=== PATIENT | female | born 1960 | race Caucasian/White ===

== ENCOUNTER 2022-12-17 03:55 | Emergency (ER) | payer OTHER, SELFPAY ==
[2022-12-17] VITALS (7 sets, daily range): BP systolic 94–150; BP diastolic 41–66; PULSE 45–55; RESP 16–18; TEMP 36.6; O2SAT 95–100; BMI 24.0
--- NOTE | 2022-12-17 04:02 | W.ED.BACK ---
HPI - Back Pain/Injury General: Chief Complaint: Back Pain/Injury Stated Complaint: low back pian Time Seen by Provider: 12/17/22 04:02 History of Present Illness: Ms. Bee is a 62-year-old lady presenting to the emergency department for evaluation of atraumatic low back pain. She reports pain in the midline, flank, radiating to the injury. Worse with palpation and movement. She does have a history of back pain but reports that this is the worst that it has been. Denies fevers, cervical pain, loss of bowel or bladder continence, saddle anesthesia, or other red flag symptoms. No other specific changes in health, exacerbating, or alleviating factors identified. Severity: moderate Quality: sharp and aching Location: right lower back and left lower back Radiation: groin Associated symptoms: Reports no associated symptoms Review of Systems General: Reports: 10 or more systems reviewed and unremarkable except in HPI and below Physical Exam Const: COMMON NORMALS: alert GENERAL APPEARANCE: cooperative and well developed HENMT: COMMON NORMALS: normocephalic and atraumatic HEAD & SCALP: normocephalic and atraumatic Eye: COMMON NORMALS: conjunctivae normal CONJUNCTIVA: Yes conjunctivae normal SCLERA: sclerae normal Neck/C-Spine: COMMON NORMALS: supple GENERAL: Yes trachea midline Resp: COMMON NORMALS: clear to auscultation bilaterally EFFORT & INSPECTION: Yes able to speak in complete sentences AUSCULTATION: clear to auscultation bilaterally Cardio: COMMON NORMALS: regular rate and regular rhythm RATE: regular rate RHYTHM: regular rhythm GI: COMMON NORMALS: Soft to palpation PALPATION: Yes Soft to palpation and No Tenderness to palpation present (GI) : COMMON NORMALS: Yes no CVA tenderness BLADDER/KIDNEY EXAM: Yes no CVA tenderness Back/Pelvis: COMMON NORMALS: no CVA tenderness LUMBAR SPINE/LOWER BACK: Yes lumbar spinal tenderness and Yes paraspinal muscle tenderness Extremity: GENERAL: Yes normal exam except as noted and No edema Neuro: COMMON NORMALS: moves all extremities SENSORIUM/ORIENTATION: Yes alert and No Orientation impaired Psych: COMMON NORMALS: mental status grossly normal and Normal thought process present THOUGHT PROCESS: Normal thought process present Course Vital Signs: Vital signs: Vital Signs Temperature 97.9 F 12/17/22 04:00 Pulse Rate 45 L 12/17/22 06:18 Respiratory Rate 16 12/17/22 06:18 Blood Pressure 94/47 12/17/22 06:18 Pulse Oximetry 97 12/17/22 06:18 Oxygen Delivery Me thod Room Air 12/17/22 06:01 MDM - Back Pain/Injury Medical Decision Making 62-year-old lady presenting to the emergency department for atraumatic worsening of back pain. Exam as above. Nontoxic and no red flag symptoms. Not significantly reproducible with palpation on exam. No significant hematologic or metabolic abnormalities. No UTI. No hematuria. No clear etiology of symptoms identified on CT scan. Incidental findings were discussed with the patient. Improved with analgesia, antiemetic, antispasmodic. Possible relation to constipation. The results of ED evaluation were discussed with the patient including prescriptions and/or symptomatic cares (if applicable) including appropriate and responsible use, followup plan, and return precautions. The patient verbalized understanding and felt safe for discharge. Medical Records I reviewed the patient's medical records. Labs I reviewed the patient's lab results. 12/17/22 04:12 12/17/22 04:12 Radiology Impressions Abdomen/Pelvis CT 12/17/22 05:03 IMPRESSION: 1. No obstructive urolithiasis or definite acute finding. 2. Hepatic steatosis, severe colonic diverticulosis, and other chronic findings. 3. Small right renal probable cyst. Advise six-month outpatient ultrasound to confirm its anticipated stability. COMMENTS: Consistent with the [employer]'s Incidental Findings Committee white paper (J Am Brie Radiol 2018): Any incidental renal lesion less than 1 cm or classified as too small to characterize, or any incidental cystic renal lesion characterized as simple-appearing, is likely benign. No follow-up imaging is recommended for these lesions per consensus recommendations based on imaging criteria. Laboratory Results WBC 5.4 10^3/uL (4.0-10.0) 12/17/22 04:12 RBC 4.48 10^6/uL (4.1-5.3) 12/17/22 04:12 Hgb 13.9 g/dL (11.5-15.3) 12/17/22 04:12 Hct 42.9 % (37.0-47.0) 12/17/22 04:12 MCV 95.8 fl (81-99) 12/17/22 04:12 MCH 31.0 pg (28.0-34.0) 12/17/22 04:12 MCHC 32.4 g/dL (30.0-36.0) 12/17/22 04:12 RDW 12.2 % (12.1-15.1) 12/17/22 04:12 Plt Count 280 10^3/cmm (130-400) 12/17/22 04:12 MPV 10.1 fL (7.4-10.4) 12/17/22 04:12 Neut % (Auto) 57.9 % 12/17/22 04:12 Lymph % (Auto) 26.7 % 12/17/22 04:12 Bledsoe % (Auto) 11.2 % 12/17/22 04:12 Eos % (Auto) 2.0 % 12/17/22 04:12 Baso % (Auto) 1.1 % 12/17/22 04:12 Neut # (Auto) 3.15 10^3/uL (1.8-7.7) 12/17/22 04:12 Lymph # (Auto) 1.5 10^3/uL (0.8-4.8) 12/17/22 04:12 Bledsoe # (Auto) 0.6 10^3/uL (0.2-0.9) 12/17/22 04:12 Eos # (Auto) 0.1 10^3/uL (0.0-0.8) 12/17/22 04:12 Baso # (Auto) 0.1 10^3/uL (0.0-0.1) 12/17/22 04:12 Nucleated RBC % (auto) 0 % 12/17/22 04:12 Nucleated RBCs # 0.0 /100WBC 12/17/22 04:12 Sodium 138 mmol/L (136-145) 12/17/22 04:12 Potassium 4.1 mmol/L (3.5-5.1) 12/17/22 04:12 Chloride 102 mmol/L (98-107) 12/17/22 04:12 Carbon Dioxide 24 mmol/L (22-29) 12/17/22 04:12 Anion Gap 16.1 (5-19) 12/17/22 04:12 BUN 14 mg/dL (8-23) 12/17/22 04:12 Creatinine 0.7 mg/dL (0.5-0.9) 12/17/22 04:12 GFR Calculation 84.5 mL/min (90-130) L 12/17/22 04:12 Glucose 150 mg/dL (65-115) H 12/17/22 04:12 Calculated Osmolality 289 mOsm/kg (285-295) 12/17/22 04:12 Calcium 9.5 mg/dL (8.5-10.5) 12/17/22 04:12 Total Bilirubin 0.3 mg/dL (0.15-1.2) 12/17/22 04:12 AST 15 U/L (0-32) 12/17/22 04:12 ALT 19 U/L (0-33) 12/17/22 04:12 Alkaline Phosphatase 62 U/L (35-105) 12/17/22 04:12 Total Protein 7.0 g/dL (6.6-8.7) 12/17/22 04:12 Albumin 4.2 g/dL (3.5-5.2) 12/17/22 04:12 Globulin 2.8 g/dL (1.3-4.6) 12/17/22 04:12 Lipase 29 U/L (13-60) 12/17/22 04:12 Urine Color Yellow (Yellow) 12/17/22 05:01 Urine Appearance Clear (CLEAR) 12/17/22 05:01 Urine pH 5 (5-7) 12/17/22 05:01 Ur Specific [place] 1.020 (1.005-1.030) 12/17/22 05:01 Urine Protein Neg (Negative) 12/17/22 05:01 Urine Glucose (UA) Norm (Normal) 12/17/22 05:01 Urine Ketones Negative (Negative) 12/17/22 05:01 Urine Blood Neg (Negative) 12/17/22 05:01 Urine Nitrate Negative (Negative) 12/17/22 05:01 Urine Bilirubin Neg (Negative) 12/17/22 05:01 Urine Urobilinogen Neg mg/dL (Negative) 12/17/22 05:01 Ur Leukocyte Esterase Negative (Negative) 12/17/22 05:01 Discharge Plan Discharge Patient Disposition: Home Clinical Impression: Acute flank pain, Constipation Condition: Stable Prescriptions: No Action vitamin C65-fwgwz acid 0.5-1 mg Tablet 1 tab PO DAILY Probiotic 3 billion cell Capsule 3,000 mmu cells PO DAILY Rx Instructions: administer with a meal hydrocodone-acetaminophen 5-325 mg tablet 1 tab PO .q 4-6 PRN (Reason: pain) Qty: 20 0RF Discharge Orders: Discharge ED (Routine); Ordered 12/17/22 Ordered By: Efrain Moody Discharge Diet: Advance as tolerated and Clear Liquid Discharge Activity: Increase activity as tolerated Patient Instructions: Constipation (ED), Acute Low Back Pain (ED), Flank Pain (ED), Opioid Safety Activity Restrictions/Additional Instructions: Thank you for visiting the emergency department. You were seen and evaluated for flank pain. The exact cause of your symptoms is unclear however does not appear to need hospitalization at this time. One potential cause is constipation/increased stool in the colon. I will prescribe MiraLAX though you can use other zwke-kcr-[id number] medications if you choose. Please ensure that you are staying hydrated. Adjust for multiple applesauce consistency bowel movements per day. I recommend clear liquid diet and slowly advancing as tolerated. Please ensure that you are resting and staying hydrated. You may use gdci-mfu-smwfruy medications such as acetaminophen and ibuprofen for pain however please do not exceed the daily recommended dosage as listed on the packaging and please keep in mind that many namebrand medications contain the same active ingredients. Please avoid these medications if previously instructed to do so by another physician due to other underlying medical condition. Return for uncontrolled symptoms, inability to tolerate oral intake, or anything else that you are concerned about and feel needs emergency department evaluation. The radiologist notes incidental finding of hepatic steatosis, colonic diverticulosis, small right renal probable cyst however given size they recommend outpatient ultrasound in 6 months to confirm stability. This can be arranged by your primary care provider. Coding Level of Care Code ED Information Officer for Janay Hughes
[2022-12-17 04:31] LABS: Basophils # 0.1 10^3/uL (0.0-0.1); Basophils % 1.1 %; Eosinophils # 0.1 10^3/uL (0.0-0.8); Hematocrit 42.9 % (37.0-47.0); Hemoglobin 13.9 g/dL (11.5-15.3); Lymphocytes # 1.5 10^3/uL (0.8-4.8); Lymphocytes % 26.7 %; Mean Corpuscular HGB Conc 32.4 g/dL (30.0-36.0); Mean Corpuscular Volume 95.8 fl (81-99); Mean Platelet Volume 10.1 fL (7.4-10.4); Monocytes # 0.6 10^3/uL (0.2-0.9); Monocytes % 11.2 %; Neutrophils # 3.15 10^3/uL (1.8-7.7); Neutrophils % 57.9 %; Nucleated Red Blood Cells % 0 %; Platelet Count 280 10^3/cmm (130-400); Red Blood Count 4.48 10^6/uL (4.1-5.3); Red Cell Distribution Width 12.2 % (12.1-15.1); White Blood Count 5.4 10^3/uL (4.0-10.0)
[2022-12-17 04:44] LABS: Alanine Aminotransferase 19 U/L (0-33); Albumin Level 4.2 g/dL (3.5-5.2); Alkaline Phosphatase 62 U/L (35-105); Anion Gap 16.1 (5-19); Aspartate Amino Transferase 15 U/L (0-32); Blood Urea Nitrogen 14 mg/dL (8-23); Calcium 9.5 mg/dL (8.5-10.5); Carbon Dioxide 24 mmol/L (22-29); Chloride 102 mmol/L (98-107); Globulin 2.8 g/dL (1.3-4.6); Glomerular Filtration Rate 84.5 mL/min (90-130); Glucose 150 mg/dL (65-115); Lipase 29 U/L (13-60); Osmolality Calculated 289 mOsm/kg (285-295); Potassium 4.1 mmol/L (3.5-5.1); Sodium 138 mmol/L (136-145); Total Bilirubin 0.3 mg/dL (0.15-1.2)
[2022-12-17] MEDS: ketorolac 30 mg/mL INJ 15 MG IVP (04:46)
[2022-12-17] MEDS: ondansetron 2 mg/ML SDV 2 mL 4 MG IVP (04:48)
[2022-12-17] MEDS: morphine 4 mg/mL SDV 1 mL IVP (04:50)
--- NOTE | 2022-12-17 05:03 | CTR_ITS ---
PROCEDURE INFORMATION: Exam: CT Abdomen And Pelvis Without Contrast Exam date and time: 12/17/2022 5:09 AM Age: 62 years old Clinical indication: Abdominal pain; Flank; Right; Additional info: R flank pain TECHNIQUE: Imaging protocol: Computed tomography of the abdomen and pelvis without contrast. Radiation optimization: All CT scans at this facility use at least one of these dose optimization techniques: automated exposure control; mA and/or kV adjustment per patient size (includes targeted exams where dose is matched to clinical indication); or iterative reconstruction. REPORTING DATA: Count of CT and Cardiac NM exams in prior 12 months: This patient has received 0 known CTs and 0 known cardiac nuclear medicine studies in the 12 months prior to the current study. COMPARISON: No relevant prior studies available. RADIATION DOSE METRICS: Total DLP (mGy-cm): 501.82 FINDINGS: Lungs: The visualized lung bases are clear. Liver: Liver is hypodense. Gallbladder and bile ducts: No calcified gallstones or biliary dilation identified. Pancreas: Unremarkable with no suspicious mass. No ductal dilation. Spleen: The spleen is not enlarged. No suspicious mass is noted. Adrenal glands: Normal. No mass. Kidneys and ureters: Right posterior renal probable cyst measures 1.7 cm. Stomach and bowel: The colon is rather fecal filled. Severe sigmoid diverticulosis. No small bowel dilation. Appendix: Normal appendix. Intraperitoneal space: Unremarkable. No free air. No suspicious fluid collection. Vasculature: Advanced diffuse vascular calcification noted. Small pelvic phleboliths. No AAA. Lymph nodes: No enlarged lymph nodes. Urinary bladder: Unremarkable as visualized. Reproductive: Unremarkable as visualized. Bones/joints: No acute fracture. Soft tissues: No acute or suspicious finding noted. CT/CT kidney stone [id number] IMPRESSION: 1. No obstructive urolithiasis or definite acute finding. 2. Hepatic steatosis, severe colonic diverticulosis, and other chronic findings. 3. Small right renal probable cyst. Advise six-month outpatient ultrasound to confirm its anticipated stability. COMMENTS: Consistent with the [employer]'s Incidental Findings Committee white paper (J Am Brie Radiol 2018): Any incidental renal lesion less than 1 cm or classified as too small to characterize, or any incidental cystic renal lesion characterized as simple-appearing, is likely benign. No follow-up imaging is recommended for these lesions per consensus recommendations based on imaging criteria.
[2022-12-17 05:11] LABS: Add Urine Microscopic? NO; Charge for UA Resulting for Rev
[2022-12-17 05:13] LABS: Bilirubin Urine Neg (Negative); Blood Urine Neg (Negative); Glucose Urine UA Norm (Normal); Ketones Urine Negative (Negative); Leukocyte Esterase Urine Negative (Negative); Nitrate Urine Negative (Negative); Protein Urine Neg (Negative); Urine Appearance Clear (CLEAR); Urine Color Yellow (Yellow); Urobilinogen Urine Neg (Negative); pH Urine 5 (5-7)
[2022-12-17] MEDS: cyclobenzaprine 10 mg Tablet 5 MG PO (06:03)
[2022-12-17] MEDS: acetaminophen 500 mg Tablet 1000 MG PO (06:03)
[2022-12-17] MEDS: dicyclomine 10 mg Capsule PO (06:04)
--- NOTE | 2022-12-17 06:11 | PC.NURSE ---
MD notified of BP, no new orders received.
== END 2022-12-17 06:27 | disposition home or self-care (01) ==
PROVIDERS: Emergency Provider Emergency Medicine
DX: M54.50 Low back pain, unspecified (principal); K59.00 Constipation, unspecified
CPT/HCPCS: 74176; 80053; 81003; 83690; 85025; 96374; 96375; 99284; J1885; J2270; J2405

== ENCOUNTER 2022-12-29 10:37 | Emergency (ER) | payer OTHER, SELFPAY ==
[2022-12-29 10:38] VITALS: BMI 26.9
[2022-12-29 10:41] VITALS: BP 179/102; PULSE 77; RESP 18; TEMP 37; O2SAT 95
--- NOTE | 2022-12-29 10:44 | XR_ITS ---
WS: [id number] Exam: XR wrist RT min 3V* [id number] Date/Time of Exam: 12/29/2022 10:46 AM Reason For Exam: fall/injury There is an impacted comminuted fracture of the distal radius. This is an intra-articular fracture. T he ulna is intact. There is mild dorsal angulation of the articulating surface of the distal radius. Soft tissue swelling about the wrist. No other fractures. XR/XR wrist RT min 3V* [id number] IMPRESSION: 1. Comminuted fracture of the distal radius with shortening and mild dorsal ang ulation. This is a intra-articular fracture
--- NOTE | 2022-12-29 10:45 | W.ED.FALL ---
HPI - Fall General: Chief Complaint: Extremity Injury, Upper Stated Complaint: FALL Time Seen by Provider: 12/29/22 10:39 Source: patient Mode of arrival: wheelchair Limitations: no limitations History of Present Illness: Patient is a nice 62-year-old female presents to ED today for evaluation following a fall. 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 She states she was wearing paper booties over her shoes which caused her to slip on the tile and fall. She believes she fell onto her right outstretched hand. Her only physical complaint upon presentation is right wrist pain. She denies striking her head or LOC. She has no neck or back pain. MD complaint: fall Onset (ago): minute(s) Fall from: standing Fall witnessed: yes, by bystander Place fall occurred: work Loss of consciousness: None Prolonged down time: no Symptoms prior to fall: none Context: tripped/slipped Location of injury - extremities: Right: forearm Associated symptoms-after fall: Reports no associated symptoms; Denies abdominal pain, chest pain, headache(s), hematuria, lightheadedness or neck pain Review of Systems Eyes: Denies: change in vision, blurry vision, floaters or seeing flashes ENMT: Denies: ear or mastoid pain, ear discharge, nasal discharge, epistaxis or sinus pain Card: Denies: chest pain, palpitations, lightheadedness, syncope or pre-syncope Resp: Denies: dyspnea or pain on inspiration GI: Denies: abdominal pain : Denies: flank pain or hematuria Musc: Reports: joint pain (R wrist) and limited range of motion (R wrist); Denies: neck pain, back pain, extremity pain, extremity swelling, joint redness or joint warmth Neuro: Denies: headache(s), numbness in extremities, weakness in extremities, sensory changes or dizziness Physical Exam Const: COMMON NORMALS: no acute distress, average body habitus, patient oriented x3, no limitations, healthy appearing, alert and well nourished GENERAL APPEARANCE: cooperative ORIENTATION/CONSCIOUSNESS: Yes awake, Yes oriented to person, Yes oriented to place and Yes oriented to time HENMT: COMMON NORMALS: normocephalic, atraumatic and TM's normal bilaterally HEAD & SCALP: normal to inspection, normocephalic and atraumatic; no Pedro's sign, no hematoma and no raccoon eyes FACE & SINUS: normal facial exam TYMPANIC MEMBRANE: TM's normal bilaterally MOUTH: other (no intraoral injuries noted) Eye: COMMON NORMALS: Equal, round and reactive pupils present and EOMs intact bilaterally GENERAL EYE: appearance normal, both eyes and all related structures and normal light reflex PUPIL: Yes Equal, round and reactive pupils present DIRECT OPHTHALMOSCOPY: Yes normal light reflex Neck/C-Spine: COMMON NORMALS: full ROM GENERAL: Yes normal visual inspection CERVICAL SPINE: Yes cervical ROM normal, No pain with cervical ROM, No Cervical spine tenderness, No step off deformity and No Paracervical muscle tenderness Chest: COMMONS NORMALS: normal inspection of the chest and normal palpation of entire chest wall Resp: COMMON NORMALS: normal respiratory effort and clear to auscultation bilaterally AUSCULTATION: clear to auscultation bilaterally Cardio: COMMON NORMALS: regular rate and regular rhythm RATE: regular rate RHYTHM: regular rhythm GI: COMMON NORMALS: Normal to inspection, nondistended, normoactive bowel sounds present, Soft to palpation, non-tender, No hepatosplenomegaly present and no masses INSPECTION: Yes normal to inspection and No abdominal wall ecchymosis AUSCULTATION: Yes normoactive bowel sounds PALPATION: Yes Soft to palpation and Yes No hepatosplenomegaly present Back/Pelvis: COMMON NORMALS: thoracic and lumbar spine normal to inspection, no thoracic nor lumbar tenderness and thoraco-lumbar ROM normal Extremity: COMMON NORMALS: capillary refill normal GENERAL: Yes normal exam except as noted RIGHT UPPER EXTREMITY: Yes wrist (TTP R wrist mainly to radial side; small amount of edema noted) Right wrist: Yes ROM (limited secondary to pain) and Yes neurovascular exam (normal) Neuro: ANITHA COMA SCALE: document GCS findings [place] coma scale eye opening: Spontaneous [place] coma scale verbal response: Orientated Anitha coma scale motor response: Obey commands Anitha coma scale total score: 15 COMMON NORMALS: patient oriented x3, CN's II-XII intact bilaterally, moves all extremities, no focal motor deficits, no sensory deficits noted and gait normal SENSORIUM/ORIENTATION: Yes alert, Yes oriented to person, Yes oriented to place and Yes oriented to time SPEECH: speech normal GAIT: Yes Normal gait present Skin: COMMON NORMALS: no rashes or lesions noted GENERAL SKIN EXAM: no rashes or lesions noted TRAUMA: no lacerations or abrasions Course Consultations: Consultation #1: Dr. Montelongo-recommends CT scan, sugar tong splint, and will see this week in office Vital Signs: Vital signs: Vital Signs Temperature 98.6 F 12/29/22 10:41 Pulse Rate 72 12/29/22 11:07 Respiratory Rate 14 12/29/22 11:08 Blood Pressure 171/83 12/29/22 11:07 Pulse Oximetry 94 12/29/22 11:08 Oxygen Delivery Me thod Room Air 12/29/22 11:07 MDM - Fall Medical Decision Making Patient has a comminuted intra-articular distal radial fracture. She has no other physical complaints at this time. I spoke to Dr. Montelongo who recommends CT imaging for surgical planning and sugar-tong splint and will see this week for follow-up. Worker's Comp. paperwork completed. 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 Lab Data Radiology Impressions Wrist X-Ray 12/29/22 10:44 IMPRESSION: 1. Comminuted fracture of the distal radius with shortening and mild dorsal angulation. This is a intra-articular fracture Discharge Plan Discharge Patient Disposition: Home Clinical Impression: Closed fracture of right distal radius Qualifiers: Encounter type: initial encounter Fracture morphology: other intra-articular Qualified Code(s): S52.571A - Other intraarticular fracture of lower end of right radius, initial encounter for closed fracture Condition: Stable Prescriptions: New hydrocodone-acetaminophen 5-325 mg tablet 1 tab PO .q 4-6 PRN (Reason: pain) Qty: 20 0RF Discontinued oxycodone 5 mg tablet 5 mg PO Q4H PRN (Reason: pain) Qty: 10 0RF No Action vitamin B17-kkqfj acid 0.5-1 mg Tablet 1 tab PO DAILY Probiotic 3 billion cell Capsule 3,000 mmu cells PO DAILY Rx Instructions: administer with a meal Discharge Orders: Discharge ED (Routine); Ordered 12/29/22 Ordered By: Dolly Greenfield Patient Instructions: Wrist Fracture in Adults (ED), ORIF of a Wrist Fracture (DC), Opioid Safety, Pain Management Activity Restrictions/Additional Instructions: As we discussed case management should be contacting you soon to set you up with your follow-up appointment with Dr. Montelongo's office. You will also follow up with a provider for Worker's Comp. MARLY warehouse receiving clerk will work on this. Coding Level of Care Code ED Employee Benefits Specialist for Janay Hughes
[2022-12-29 11:07] VITALS: BP 171/83; PULSE 72; RESP 14; O2SAT 94
[2022-12-29 11:08] VITALS: RESP 14; O2SAT 94
[2022-12-29] MEDS: morphine 4 mg/mL SDV 1 mL IM (11:08)
--- NOTE | 2022-12-29 11:13 | CTR_ITS ---
PROCEDURE INFORMATION: Exam: CT Right Upper Extremity Without Contrast, Wrist Exam date and time: 12/29/2022 11:20 AM Age: 62 years old Clinical indication: Injury or trauma; Fall; Work related; Blunt trauma (contusions or hematomas); Wrist; Right; Additional info: Comminuted intra-articular FX TECHNIQUE: Imaging protocol: Computed tomography of the right upper extremity without contrast. Exam focused on the wrist. Radiation optimization: All CT scans at this facility use at least one of these dose optimization techniques: automated exposure control; mA and/or kV adjustment per patient size (includes targeted exams where dose is matched to clinical indication); or iterative reconstruction. REPORTING DATA: Count of CT and Cardiac NM exams in prior 12 months: This patient has received [address] and 0 known cardiac nuclear medicine studies in the 12 months prior to the current study. COMPARISON: CR XR wrist RT min 3V* [id number] 12/29/2022 10:49 AM RADIATION DOSE METRICS: Total DLP (mGy-cm): 73.37 FINDINGS: Bones/joints: Mildly displaced, foreshortened and angulated comminuted intra-articular distal radius fracture. Corticated ossicle dorsal to the triquetral bone in keeping with old fracture. Mild nonaggressive cystic change at the ulnar lunate. Moderate 1st CMC joint osteoarthritic changes. Soft tissues: Regional soft tissue swelling. CT/CT wrist RT wo con* [id number] IMPRESSION: 1. Acute mildly displaced, foreshortened and angulated comminuted intra-articular distal radius fracture. 2. Old triquetral fracture. 3. 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
[2022-12-29 11:45] VITALS: BP 161/97; PULSE 72; RESP 14; O2SAT 96
--- NOTE | 2022-12-29 14:51 | DCPLANNER ---
Addendum entered by Odalis Khoury 12/30/22 14:25: Patient had a follow up appointment scheduled for 12.30.22 at ortho - patient did attend appointment. Original Note: digital communications manager had message to schedule a follow up appointment for patient with ortho. digital communications manager sent patients information to the front office staff at ortho. Patients information will be printed and reviewed. Clinic will call patient with appointment information.
== END 2022-12-29 11:41 | disposition home or self-care (01) ==
PROVIDERS: Emergency Provider Physician Assistant
DX: S52.571A Other intraarticular fracture of lower end of right radius, initial encounter for closed fracture (principal); W01.0XXA Fall on same level from slipping, tripping and stumbling without subsequent striking against object, initial encounter; Y92.239 Unspecified place in hospital as the place of occurrence of the external cause; Y99.0 Civilian activity done for income or pay
CPT/HCPCS: 73110; 73200; 96372; 99284; J2270

== ENCOUNTER 2023-01-01 10:06 | Day surgery (SDC) | payer OTHER, SELFPAY ==
[2023-01-01] VITALS (8 sets, daily range): BP systolic 117–167; BP diastolic 70–96; PULSE 62–96; RESP 12–19; TEMP 36.1–36.6; O2SAT 92–96; BMI 26.9
--- NOTE | 2023-01-01 | XR_ITS ---
WS: [id number] Exam: XR wrist RT 2V [id number] Date/Time of Exam: 01/01/2023 12:00 AM Reason For Exam: ORIF right wrist Comparison 12/29/2022. AP and lateral intraoperative C-arm images demonstrate volar plate and screw fixation of a fracture o f the distal radius. The fracture is stabilized in anatomic alignment for healing. XR/XR wrist RT 2V [id number] IMPRESSION: 1. Fracture distal radius with internal fixation in excellent position for heal ing.
[2023-01-01] MEDS: acetaminophen 1,000 MG/100 ML PIGGYBACK 400 MG IV (10:29)
[2023-01-01] MEDS: gabapentin 300 mg Capsule PO (10:29)
[2023-01-01] MEDS: sodium chloride 0.9% 1,000 ML 30 ML IV (10:29)
[2023-01-01] MEDS: CELEcoxib 200 mg Capsule 400 MG PO (10:30)
--- NOTE | 2023-01-01 11:45 | W.PM.OPSUD ---
Surgery/Procedure H&P Update DATE OF PROCEDURE: January 01, 2023 DATE H&P PERFORMED: 12/30/22 H&P UPDATE INFORMATION: I have reviewed H&P completed within last 30 days, I have examined patient prior to procedure, No changes to prior documentation and [place] [facility] [place] indicated PREOP DIAGNOSIS: Right distal radius fracture PLANNED PROCEDURE: Operation Date: 01/01/23 11:50 Proposed Procedures p ORIF Wrist ORIF Distal Radius 54359,S52.501A(Right) - Adelaide Montelongo MD Related Problem List Diagnoses (1) Closed fracture of right distal radius: Qualifiers: Encounter type: initial encounter Fracture morphology: other intra-articular Qualified Code(s): S52.571A - Other intraarticular fracture of lower end of right radius, initial encounter for closed fracture
[2023-01-01] MEDS: ceFAZolin 2,000 MG in sodium chloride 0.9% (plus) 50 ML 100 MG IV (12:15)
--- NOTE | 2023-01-01 12:16 | ANES.PREANE2 ---
Pre-Anesthetic Assessment Height/Weight: Height 1.57 m Weight 66.678 kg Temp Pulse Resp BP Pulse Ox O2 Del Method 97.8 F 96 16 167/96 96 Room Air 01/01/23 10:22 01/01/23 10:22 01/01/23 10:22 01/01/23 10:22 01/01/23 10:22 01/01/23 10:45 Preop Diagnosis: Right distal radius fracture Operation Date: 01/01/23 11:50 Proposed Procedures p ORIF Wrist ORIF Distal Radius 12711,S52.501A(Right) - Adelaide Montelongo MD Familial anesthetic complications: none Was Beta Jose taken within 24 hours: N/A Was Clonidine taken within 24 hours: N/A Last intake: Intake Last Liquid Date 12/31/22 Last Liquid Time 20:00 Last Solid Date 12/31/22 Last Solid Time 20:00 Social No alcohol and No tobacco Exam alert, oriented x 3, clear to auscultation bilaterally and regular rate & rhythm Airway Submandibular: within normal limits Cervical ROM: within normal limits Mallampati: Class II Dentition: full History/ROS No significant history except as noted Anesthetic Plan ASA status: 1 Anesthesia: General and Regional (specify below) (right interscalene blk) Medications/Allergies Home Medications Medication Instructions Recorded Confirmed Last Taken Type hydrocodone 5 mg-acetaminophen 325 1 tab PO .q 4-6 PRN pain #20 tabs 12/29/22 01/01/23 12/31/22 Rx mg tablet lactobacillus combination no.4 3 3,000 mmu cells PO DAILY 12/29/22 01/01/23 12/29/22 History billion cell capsule (Probiotic) vitamin B12 0.5 mg-folic acid 1 mg 1 tab PO DAILY 12/29/22 01/01/23 12/29/22 History tablet Allergies Allergy/AdvReac Type Severity Reaction Status Date / Time No Known Allergies Allergy Verified 01/01/23 10:20 Current Medications Generic Name Dose Route Start Last Admin Trade Name Freq PRN Reason Stop Dose Admin Sodium Chloride 1,000 mls @ 30 mls/hr 01/01/23 10:15 01/01/23 10:29 Sodium Chloride 0.9% IV 01/02/23 10:14 30 mls/hr .Q24H CONCEPCION Administration Data Anesthesia Cardiac Studies: No Data to Display Anesthesia Procedures Nerve Block Nerve Block 1: Main Anesthesia: general anesthesia Time Out Performed: Yes Consent: requested by attending/covering physician, from patient, risks and benefits reviewed and patient agrees to proceed Nerve block location: interscalene (right) Anesthesia monitors applied: pulse oximetry, EKG, BP cuff and oxygen Nerve block position: semi sitting Anesthetic Used: ropivicaine 0.5% Amount of anesthesia used (mL): 30 Ultrasound used to: recognize landmarks and visualize and ID brachial plexus Nerve Stimulator Used?: No Interscalene/Femoral BLK: 2 stimuplex 22 g needle used for position and inplane approach Injection: neg aspiration of heme Patient Tolerated Procedure: well Complications: none
[2023-01-01] MEDS: ceFAZolin 1,000 mg SDV 1000 MG IRRIGATION (12:58)
--- NOTE | 2023-01-01 14:02 | P.OP_ITS ---
Operative Report Date of procedure: January 01, 2023 Pre-op diagnosis: Right distal radius fracture Post-op diagnosis: Right distal radius fracture Post-op findings: [place] volar angulation Procedure done: Open reduction internal fixation right distal radius fracture Implants: The [place] volar distal radius plate 3 hole extra short narrow Pathology: none sent Surgeon: Adelaide Montelongo Intermediate Card Tender: [facility] operating room technicians Anesthesia: General (Per LMA, ASA 1 with supplemental interscalene block) Estimated blood loss (mL): 5 Tourniquet time (min): 0 (Not utilized) IV fluids (mL): 500 Urine output (mL): 0 (Not utilized) Complications: None Findings: [place] volar angulation right distal radius fracture Condition: stable Disposition: PACU (Then return to same-day surgery for discharge to home) Brief History: This is a 62 year old female patient here today for open reduction internal fixation of her right distal radius fracture which demonstrates apex volar angulation. Patient states that she was out side of the surgery department, and she slipped while wearing her shoe covers. Patient states that this caused her to fall. Patient states that she had instant pain in the right wrist following the injury. DOI: 12/29/2022.? She was sent to the emergency department at that time where she was found to have a distal radius fracture.? CT was obtained for further characterization, and this was reviewed with the patient in the office prior to planning surgical intervention. After discussion, the patient wished to proceed with open reduction internal fixation, and I was in agreement with that plan. Scheduled for the above surgery. Risks and complications were discussed and consents were signed in the office. Procedure: The patient was brought to the operating theater. General anesthesia per LMA, ASA 1, was administered without difficulty. The tourniquet was placed on the arm, but it was not elevated for the surgical procedure. The patient was also given Ancef 2 g preoperatively. The arm was then prepped and draped with DuraPrep in usual fashion with the arm draped free. A surgical pause was performed. At the time, the surgical pause, we confirmed the site and side of surgery. We also confirmed the patient's identity, appropriate and timely administration of preoperative antibiotics and preoperative surgical markings. Following prepping and draping, the fracture was evaluated fluoroscopically and the appropriate plate size was chosen. The skin was marked for appropriate incision length and location. An incision was made along the palmaris longus and continued down onto the volar surface of the radius.? Care was taken to avoid injury throughout the surgical procedure to the median nerve as well as to the radial artery.? The flexor carpi radialis was retracted medially.? We were able to essentially elevate the sheath of the flexor carpi radialis, and then I was able to place my finger directly onto the distal radius.? For the most part, the patient did her own dissection at the time of her injury.? Soft tissues were elevated off the distal radius to allow access to the fracture and also to the volar aspect of the distal radial shaft.? Reduction required manipulation, and following manipulation, the fracture was essentially anatomic.? Fluoroscopy was used to determine whether or not the reduction was appropriate.? We were able to reduce the fracture nearly anatomically.? We then evaluated the plate and chose the 3 hole extra short narrow [place] volar distal radius plate.? The plate was attached proximally and distally without difficulty.? A combination of locking and 1 nonlocking screw was utilized to attach the plate.? We had excellent fixation and reduction of the fracture. Fluoroscopy was utilized during the procedure.? Once the plate was fully attached, we had a near anatomic position to the distal radius and the distal radius was out to length.? Being satisfied with position, the area was copiously irrigated. There were no fascial tissues to close, and therefore, we closed the subcutaneous tissues with 4-0 interrupted Monocryl.? Skin was closed in a subcuticular fashion with 4-0 Monocryl.?Sterile dressing was then placed consisting of Dermabond, Steri-Strips, OpSite, fluffed fluffs, sterile soft roll, a volar splint, and an Favian wrap. There were no complications. There were no specimens. The procedure was well tolerated. Plan is the patient will be discharged home. Related Problem List Diagnoses (1) Closed fracture of right distal radius:
--- NOTE | 2023-01-01 17:28 | ANE.PACU2 ---
Inpatient post-anesthesia follow up: Airway intact: Yes Vital signs: Temperature 97.0 F Pulse Rate 62 Respiratory Rate 16 Blood Pressure 119/77 Pulse Oximetry 93 Oxygen Delivery Me thod Room Air Oxygen Flow Rate Fraction of Inspir ed Oxygen Hydration adequate: Yes Nausea and vomiting: No Pain level: 1 Mental status: Baseline
== END 2023-01-01 15:40 | disposition home or self-care (01) ==
PROVIDERS: Visit Provider Specialist
PROC: (CPT 25608; principal; 2023-01-01 11:40)
DX: S52.591A Other fractures of lower end of right radius, initial encounter for closed fracture (principal); W01.0XXA Fall on same level from slipping, tripping and stumbling without subsequent striking against object, initial encounter; Y99.0 Civilian activity done for income or pay
CPT/HCPCS: 25608; 73100; 76000; C1713; J0131; J0690; J1170; J2405; J2704; J2795; J3490; J7030

== ENCOUNTER → 2023-01-18 14:23 | Outpatient (BNVA) | payer OTHER, SELFPAY | PROVIDERS: Visit Provider Specialist | DX: S52.571A Other intraarticular fracture of lower end of right radius, initial encounter for closed fracture; X58.XXXA Exposure to other specified factors, initial encounter | CPT/HCPCS: 73110 ==

== ENCOUNTER 2023-01-20 10:57 | Outpatient (CLI) | payer OTHER, SELFPAY | END 2023-01-20 10:58 | disposition home or self-care (01) | LOC: SPT 10:58 | PROVIDERS: Visit Provider Specialist | DX: Z46.89 Encounter for fitting and adjustment of other specified devices (principal); S52.501D Unspecified fracture of the lower end of right radius, subsequent encounter for closed fracture with routine healing; X58.XXXD Exposure to other specified factors, subsequent encounter | CPT/HCPCS: 97760; L3982 ==

== ENCOUNTER → 2023-02-03 10:12 | Outpatient (BNVA) | payer OTHER, SELFPAY | PROVIDERS: Visit Provider Specialist | DX: S52.571D Other intraarticular fracture of lower end of right radius, subsequent encounter for closed fracture with routine healing; X58.XXXD Exposure to other specified factors, subsequent encounter | CPT/HCPCS: 73110 ==

== ENCOUNTER 2023-02-05 08:29 | Outpatient (RCR) | payer OTHER, SELFPAY | END 2023-02-11 23:59 | disposition home or self-care (01) | LOC: SOT 08:29 | PROVIDERS: Visit Provider Specialist | DX: Z47.89 Encounter for other orthopedic aftercare (principal) | CPT/HCPCS: 97022; 97110; 97140; 97165; 97530 ==

== ENCOUNTER 2023-02-12 06:00 | Outpatient (RCR) | payer OTHER, SELFPAY | END 2023-03-13 23:59 | disposition home or self-care (01) | LOC: SOT 06:00 | PROVIDERS: Visit Provider Specialist | DX: S52.501D Unspecified fracture of the lower end of right radius, subsequent encounter for closed fracture with routine healing (principal); W01.0XXD Fall on same level from slipping, tripping and stumbling without subsequent striking against object, subsequent encounter | CPT/HCPCS: 97022; 97110; 97140 ==

== ENCOUNTER → 2023-03-03 11:07 | Outpatient (BNVA) | payer OTHER, SELFPAY | PROVIDERS: Visit Provider Specialist | DX: S52.571D Other intraarticular fracture of lower end of right radius, subsequent encounter for closed fracture with routine healing; X58.XXXD Exposure to other specified factors, subsequent encounter | CPT/HCPCS: 73110 ==

== ENCOUNTER 2023-03-14 06:00 | Outpatient (RCR) | payer OTHER, SELFPAY | END 2023-04-13 23:59 | disposition home or self-care (01) | LOC: SOT 06:00 | PROVIDERS: Visit Provider Specialist | DX: S52.501D Unspecified fracture of the lower end of right radius, subsequent encounter for closed fracture with routine healing (principal); X58.XXXD Exposure to other specified factors, subsequent encounter | CPT/HCPCS: 97022; 97110; 97140 ==

== ENCOUNTER → 2023-03-24 08:03 | Outpatient (BNVA) | payer OTHER, SELFPAY | PROVIDERS: Visit Provider Nurse Practitioner | DX: S52.571D Other intraarticular fracture of lower end of right radius, subsequent encounter for closed fracture with routine healing; X58.XXXD Exposure to other specified factors, subsequent encounter; Y99.0 Civilian activity done for income or pay | CPT/HCPCS: 73110 ==

== ENCOUNTER → 2023-05-10 08:03 | Outpatient (BNVA) | payer OTHER, SELFPAY | PROVIDERS: Visit Provider Nurse Practitioner | DX: S52.571D Other intraarticular fracture of lower end of right radius, subsequent encounter for closed fracture with routine healing; X58.XXXD Exposure to other specified factors, subsequent encounter; Y99.0 Civilian activity done for income or pay | CPT/HCPCS: 73110 ==

== ENCOUNTER → 2024-08-21 15:40 | Outpatient (BNVA) | payer OTHER, SELFPAY | PROVIDERS: Visit Provider Specialist | DX: S52.571D Other intraarticular fracture of lower end of right radius, subsequent encounter for closed fracture with routine healing (principal); M25.539 Pain in unspecified wrist; M19.131 Post-traumatic osteoarthritis, right wrist; M18.11 Unilateral primary osteoarthritis of first carpometacarpal joint, right hand; X58.XXXD Exposure to other specified factors, subsequent encounter | CPT/HCPCS: 73110 ==

== ENCOUNTER 2024-08-21 16:24 | Outpatient (CLI) | payer OTHER, SELFPAY | END 2024-08-21 16:25 | disposition home or self-care (01) | LOC: SPT 16:26 | PROVIDERS: Visit Provider Specialist | DX: Z46.89 Encounter for fitting and adjustment of other specified devices (principal); M25.531 Pain in right wrist | CPT/HCPCS: L3924 ==

== ENCOUNTER 2024-09-20 08:30 | Outpatient (CLI) | payer OTHER, SELFPAY ==
--- NOTE | 2024-09-20 08:00 | NM_ITS ---
WS: [id number] THREE-PHASE BONE SCAN HISTORY: 3 phase bone scan, fracture distal RIGHT radius. COMPARISON: Radiograph 08/21/2024 Patient is is injected with 25.1 mCi Tc99m HDP intravenously. Immediate angiographic phase imaging is performed over the area of concern. Static blood pool imaging also performed. Two-hour whole-body scintigrams performed in anterior and posterior projections. Additional large field of view imaging sub mitted as necessary. Angiographic phase is normal. There is very minimal increased uptake bilaterally near the carpal metacarpal articulations of both wrists on blood pool imaging. On delayed imaging there is marked intense uptake involving the carpal metacarpal articulations. The increased uptake probably extends into the STT joint also. Very mild, intermediate uptake in the distal RIGHT radius. There is also minimal increased uptake in the distal LEFT ulna. Normal soft tissue uptake. Normal renal uptake. 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 Mild AC joint arthritis. NM/NM bone 3 phase [id number] IMPRESSION: 1. Intense uptake bilaterally at the carpal metacarpal joints consistent with arthropathy. 2. Very minimal uptake involving the distal RIGHT radius and the distal LEFT u alteration tailor. May be healing fractures or mild arthropathy at the wrist joints. 3. No osteomyelitis.
== END 2024-09-20 08:31 | disposition home or self-care (01) ==
PROVIDERS: PCP Specialist; Visit Provider Specialist
DX: S52.501A Unspecified fracture of the lower end of right radius, initial encounter for closed fracture (principal); X58.XXXA Exposure to other specified factors, initial encounter; R93.6 Abnormal findings on diagnostic imaging of limbs; M19.079 Primary osteoarthritis, unspecified ankle and foot; M19.019 Primary osteoarthritis, unspecified shoulder
CPT/HCPCS: 78315; A9561

== ENCOUNTER 2024-09-25 10:30 | Outpatient (CLI) | payer OTHER, SELFPAY | END 2024-09-25 10:31 | disposition home or self-care (01) | LOC: SPT 10:31 | PROVIDERS: PCP Specialist; Visit Provider Specialist | DX: Z46.89 Encounter for fitting and adjustment of other specified devices (principal); M65.4 Radial styloid tenosynovitis [de Quervain] | CPT/HCPCS: 97760; L3809 ==

== ENCOUNTER 2024-12-19 11:24 | Emergency (ER) | payer OTHER, SELFPAY ==
[2024-12-19 11:28] VITALS: BP 170/75; PULSE 77; TEMP 36.5; O2SAT 97
--- NOTE | 2024-12-19 11:34 | ECG_ITS ---
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 Measurements Intervals [place] Rate: 82 P: 56 AR: 117 QRS: 2 QRSD: 92 T: 35 QT: 392 QTc: 458 Interpretive Statements SINUS RHYTHM WITH SHORT AR INTERVAL LOW QRS VOLTAGE IN PRECORDIAL LEADS [QRS DEFLECTION < 1.0 mV IN CHEST LEADS] MODERATE ST DEPRESSION [0.05+ mV ST DEPRESSION] INTERPRETATION BASED ON A DEFAULT AGE OF 40 YEARS No previous ECG available for comparison Electronically Signed On 12-19-2024 17:15:44 CDT by Valeri Cohn M.D. [id number]
--- NOTE | 2024-12-19 12:02 | XR_ITS ---
WS: [id number] Exam: XR chest 1V portable [id number] Date/Time of Exam: 12/19/2024 12:15 PM Reason For Exam: sob No priors. Lungs are clear and fully expanded. Normal cardiomediastinal silhouette. No pleural effusion. Bony structures are intact. XR/XR chest 1V portable [id number] IMPRESSION: 1. No acute cardiopulmonary process.
--- NOTE | 2024-12-19 12:31 | ED_ITS ---
HPI - SOB/Dyspnea 2 General: Chief Complaint: Shortness of Breath/Dyspnea Stated Complaint: trouble breathing, dizzy Time Seen by Provider: 12/19/24 12:05 Source: patient Mode of arrival: ambulatory Limitations: no limitations History of Present Illness: HPI Narrative: 64-year-old female who states that at wo rk this morning at 7 AM started to have some dizziness and feeling short of breath she states she just did not feel right she denied any chest pain or vomiting she states her symptoms have since resolved and feels back to her baseline she has had previous episodes like that she had no difficulty walking no slurred speech no weakness Associated symptoms: Reports dizziness; Deny abdominal pain, chest pain, fever(s), nausea or vomiting Related Data Home Medications ?Medication ?Instructions ?Recorded ?Confirmed lactobacillus combination no.4 3 3,000 mmu cells PO DA SACHI 12/29/22 09/25/24 billion cell capsule (Probiotic) vitamin B12 0.5 mg-folic acid 1 mg 1 tab PO DAILY 12/1209/25/24 tablet Previous Rx's ?Medication ?Instructions ?Recorded Fast Form #1 ea 01/18/23 cmc joint brace, right #1 ea 08/21/24 thumb spica, off the shelf, right #1 ea 09/25/24 Allergies Allergy/AdvReac Type Severity Reaction Status Date / Time No Known Allergies Allergy Verified 12/19/24 11:40 Review of Systems 2 Const: Denies: fever(s), chills, body aches or change in appetite Eyes: Denies: blurry vision or eye discomfort ENMT: Denies: throat pain or dental pain Card: Denies: chest pain Resp: Reports: dyspnea GI: Denies: abdominal pain, nausea, vomiting or diarrhea Musc: Denies: neck pain or back pain Skin/Breast: Denies: rash Neuro: Reports: dizziness; Denies: headache(s) PFSH ED 2 PFSH: Social History Smoking and tobacco/nicotine status: unknown if used tobacco/nicotine Physical Exam 2 Const: COMMON NORMALS: no acute distress, patient oriented x3 and healthy appearing HENMT: COMMON NORMALS: normocephalic and atraumatic HEAD & SCALP: n ormocephalic and atraumatic Eye: COMMON NORMALS: Equal, round and reactive pupils present and EOMs intact bilaterally PUPIL: Yes Equal, round and reactive pupils present Neck/C-Spine: COMMON NORMALS: full ROM and supple Chest: COMMONS NORMALS: normal inspection of the chest and normal palpation of entire chest wall Resp: COMMON NORMALS: normal respiratory effort, No retractions, No use of accessory muscles and clear to auscultation bilaterally AUSCULTATION: clear to auscultation bilaterally Cardio: COMMON NORMALS: regular rate, regular rhythm and No murmurs present (Cardio) RATE: regular rate RHYTHM: regular rhythm GI: COMMON NORMALS: Normal to inspection, nondistended, normoactive bowel sounds present, Soft to palpation, non-tender and no masses PALPATION: Yes Soft to palpation Extremity: COMMON NORMALS: normal to inspection and full ROM Neuro: COMMON NORMALS: patient oriented x3, moves all extremities and no focal motor deficits Psych: COMMON NORMALS: mental status grossly normal, Normal thought process present and cooperative THOUGHT PROCESS: Normal thought process present Skin: COMMON NORMALS: no rashes or lesions noted and no wounds GENERAL SKIN EXAM: no rashes or lesions noted Course 2 Vital Signs: Vital signs: Vital Signs Temperature 97.7 F 12/19/24 11:28 Pulse Rate 77 12/19/24 11:28 Blood Pressure 170/75 12/19/24 11:28 Pulse Oximetry 97 12/19/24 11:28 Oxygen Delivery Me thod Room Air 12/19/24 11:28 MDM - SOB/Dyspnea Medical Decision Making Patient presents here with episode of dizziness, shortness of breath since resolved she feels completely fine she been well-appearing here ambulates without difficulty her blood work imaging is normal she is stable for discharge follow-up PCP return if worsening. Medical Records I reviewed the patient's medical records. Lab Data I reviewed the patient's lab results. 12/19/24 12:56 12/19/24 12:56 Labs/Radiology: Radiology Impressions Chest X-Ray 12/19/24 12:02 IMPRESSION: 1. No acute cardiopulmonary process. Laboratory Results WBC 6.29 10^3/uL (3.29-11.43) 12/19/24 12:56 RBC 4.19 10^6/uL (3.85-5.65) 12/19/24 12:56 Hgb 13.50 g/dL (11.27-16.99) 12/19/24 12:56 Hct 41.0 % (36-47) 12/19/24 12:56 MCV 97.9 fl (85-98) 12/19/24 12:56 MCH 32.2 pg (27-33) 12/19/24 12:56 MCHC 32.9 g/dL (30-55) 12/19/24 12:56 RDW 11.9 % (12.1-15.1) L 12/19/24 12:56 Plt Count 272 10^3/cmm (157-399) 12/19/24 12:56 MPV 9.6 fL (7.4-10.4) 12/19/24 12:56 Neut % (Auto) 75.6 % 12/19/24 12:56 Lymph % (Auto) 12.4 % 12/19/24 12:56 Burnett % (Auto) 9.4 % 12/19/24 12:56 Eos % (Auto) 1.0 % 12/19/24 12:56 Baso % (Auto) 0.6 % 12/19/24 12:56 Neut # (Auto) 4.76 10^3/uL (1.8-7.7) 12/19/24 12:56 Lymph # (Auto) 0.8 10^3/uL (0.8-4.8) 12/19/24 12:56 [place]ett # (Auto) 0.6 10^3/uL (0.2-0.9) 12/19/24 12:56 Eos # (Auto) 0.1 10^3/uL (0.0-0.8) 12/19/24 12:56 Baso # (Auto) 0.0 10^3/uL (0.0-0.1) 12/19/24 12:56 Nucleated RBC % (auto) 0 % 12/19/24 12:56 Nucleated RBCs # 0.0 /100WBC 12/19/24 12:56 Sodium 138 mmol/L (136-145) 12/19/24 12:56 Potassium 3.8 mmol/L (3.5-5.1) 12/19/24 12:56 Chloride 102 mmol/L (98-107) 12/19/24 12:56 Carbon Dioxide 23 mmol/L (22-29) 12/19/24 12:56 Anion Gap 16.8 (5-19) 12/19/24 12:56 BUN 11 mg/dL (8-23) 12/19/24 12:56 Creatinine 0.5 mg/dL (0.5-0.9) 12/19/24 12:56 GFR Calculation 123.8 mL/min (90-130) 12/19/24 12:56 Glucose 142 mg/dL (65-115) H 12/19/24 12:56 Calculated Osmolality 288 mOsm/kg (285-295) 12/19/24 12:56 Calcium 9.7 mg/dL (8.5-10.5) 12/19/24 12:56 Total Bilirubin 0.3 mg/dL (0.15-1.2) 12/19/24 12:56 AST 16 U/L (0-32) 12/19/24 12:56 ALT 16 U/L (0-33) 12/19/24 12:56 Alkaline Phosphatase 71 U/L (35-105) 12/19/24 12:56 Total Protein 7.1 g/dL (6.6-8.7) 12/19/24 12:56 Albumin 4.0 g/dL (3.5-5.2) 12/19/24 12:56 Globulin 3.1 g/dL (1.3-4.6) 12/19/24 12:56 All radiology interpretation(s) finalized by discharge Discharge Plan Discharge Patient Disposition: Home Clinical Impression: Dyspnea, Dizziness Condition: Stable Prescriptions: No Action (DME) Fast Form See Rx Instructions .Route .MEDSUPPLY Qty: 1 0RF Rx Instructions: As directed-May come out of splint to shower (DME) cmc joint brace, right See Rx Instructions .Route .MEDSUPPLY Qty: 1 0RF Rx Instructions: As directed (DME) thumb spica, off the shelf, right See Rx Instructions .Route .MEDSUPPLY Qty: 1 0RF Rx Instructions: As directed vitamin B30-ucwng acid 0.5-1 mg Tablet 1 tab PO DAILY Probiotic 3 billion cell Capsule 3,000 mmu cells PO DAILY Rx Instructions: administer with a meal Discharge Orders: Discharge ED (Routine); Ordered 12/19/24 Ordered By: Michael Barrera Discharge Diet: Advance as tolerated Discharge Activity: Resume usual activity Patient Instructions: Dyspnea (ED), Dizziness (ED) Print Language: Algerian Coding Level of Care Code ED Power And Recovery Supervisor for Janay Hughes
[2024-12-19 13:08] LABS: Hematocrit 41.0 % (36-47); Hemoglobin 13.50 g/dL (11.27-16.99); Mean Corpuscular HGB Conc 32.9 g/dL (30-55); Mean Corpuscular Hemoglobin 32.2 pg (27-33); Mean Corpuscular Volume 97.9 fl (85-98); Nucleated Red Blood Cells % 0 %; Platelet Count 272 10^3/cmm (157-399); Red Blood Count 4.19 10^6/uL (3.85-5.65); White Blood Count 6.29 10^3/uL (3.29-11.43)
[2024-12-19 13:31] LABS: Alanine Aminotransferase 16 U/L (0-33); Albumin Level 4.0 g/dL (3.5-5.2); Alkaline Phosphatase 71 U/L (35-105); Anion Gap 16.8 (5-19); Aspartate Amino Transferase 16 U/L (0-32); Blood Urea Nitrogen 11 mg/dL (8-23); Calcium 9.7 mg/dL (8.5-10.5); Carbon Dioxide 23 mmol/L (22-29); Chloride 102 mmol/L (98-107); Creatinine Clr Calc Pharmacy 62.9102; Globulin 3.1 g/dL (1.3-4.6); Glucose 142 mg/dL (65-115); Osmolality Calculated 288 mOsm/kg (285-295); Potassium 3.8 mmol/L (3.5-5.1); Sodium 138 mmol/L (136-145); Total Protein 7.1 g/dL (6.6-8.7)
[2024-12-19 13:51] VITALS: BP 141/96; PULSE 77; O2SAT 94
== END 2024-12-19 13:51 | disposition home or self-care (01) ==
PROVIDERS: Emergency Provider Emergency Medicine
DX: R06.00 Dyspnea, unspecified (principal); R42 Dizziness and giddiness
CPT/HCPCS: 36415; 71045; 80053; 85025; 93005; 99285; J8597

== ENCOUNTER → 2025-01-22 15:20 | Outpatient (BNVA) | payer OTHER, SELFPAY | PROVIDERS: PCP Family Medicine; Visit Provider Family Medicine | DX: Z13.6 Encounter for screening for cardiovascular disorders (principal); Z86.2 Personal history of diseases of the blood and blood-forming organs and certain disorders involving the immune mechanism; D50.9 Iron deficiency anemia, unspecified; R53.83 Other fatigue | CPT/HCPCS: 80061; 82728; 83550; 84443 ==

== ENCOUNTER 2025-02-07 15:33 | Outpatient (CLI) | payer OTHER, SELFPAY ==
--- NOTE | 2025-02-07 16:00 | CT_ITS ---
WS: [id number] LDCT LUNG CANCER SCREENING TECHNIQUE: Noncontrast CT of the chest with coronal and sagittal reformatted images. CLINICAL INFORMATION: screening COMPARISON: None. DLP: 52.29 mGy.cm DIvol: Mean CTDIvol: 1.00 (mGy) All CT scans at [facility] use at least one of these dose optimization techniques: automated exposure control; mA and/or kV adjustment per patient size (includes targeted exams where dose is matched to clinical indication); or iterative reconstruction. FINDINGS: Mild chronic emphysematous changes. No suspicious pulmonary parenchymal abnormalities. Fibrosis in the lung apices. Adrenal glands are normal. Normal noncontrast liver. Normal GE junction. No mediastinal or hilar lymphadenopathy. Aortic calcification. Coronary calcification. No axillary lymphadenopathy. Mild thoracic kyphosis. CT/CT lung screening [id number] IMPRESSION: LUNG-RADS: 1-Negative FOLLOW UP: 12 Month: Continue annual screening with LDCT
== END 2025-02-07 15:34 | disposition home or self-care (01) ==
LOC: RAD 15:34
PROVIDERS: PCP Family Medicine; Visit Provider Family Medicine
DX: Z12.2 Encounter for screening for malignant neoplasm of respiratory organs (principal); Z87.891 Personal history of nicotine dependence; J43.9 Emphysema, unspecified; J84.10 Pulmonary fibrosis, unspecified; I70.0 Atherosclerosis of aorta; M40.204 Unspecified kyphosis, thoracic region
CPT/HCPCS: 71271

== ENCOUNTER → 2025-02-23 14:06 | Outpatient (BNVA) | payer OTHER, SELFPAY | PROVIDERS: PCP Family Medicine; Visit Provider Family Medicine | DX: Z01.419 Encounter for gynecological examination (general) (routine) without abnormal findings (principal) | CPT/HCPCS: 87624 ==

== ENCOUNTER 2025-03-05 15:04 | Outpatient (CLI) | payer OTHER, SELFPAY ==
--- NOTE | 2025-03-05 15:20 | MM_ITS ---
WS: [id number] BILATERAL 3D TOMOSYNTHESIS DIGITAL SCREENING MAMMOGRAPHY WITH CAD CLINICAL INFORMATION: screening HISTORY: Screening mammogram. No current complaints. COMPARISON: Baseline TECHNIQUE: Bilateral CC and MLO views. FINDINGS: Scattered fibroglandular densities bilaterally. No suspicious focal mass, asymmetry, calcifications, or architectural distortion. No evidence of malignancy. Incidental punctate calcifications. MM/MM scr tomosynthesis [id number] IMPRESSION: DENSITY: There are scattered areas of fibroglandular density. BI-RADS: 2 - Benign. FOLLOW UP: 1 Year Follow-up Recommend return to annual screening mammography.
== END 2025-03-05 15:05 | disposition home or self-care (01) ==
LOC: RAD 15:05
PROVIDERS: PCP Family Medicine; Visit Provider Family Medicine
DX: Z12.31 Encounter for screening mammogram for malignant neoplasm of breast (principal); R92.323 Mammographic fibroglandular density, bilateral breasts; R92.1 Mammographic calcification found on diagnostic imaging of breast
CPT/HCPCS: 77063; 77067